=== PATIENT | female | born 1980 | race Hispanic/Latino ===

== ENCOUNTER 2018-03-12 21:48 | Emergency (ER) | payer OTHER ==
[2018-03-12] MEDS ORDERED: HYDROCODONE/APAP 10/325 TAB ONE (23:55)
--- NOTE | 2018-03-13 00:42 | ER ---
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 Transition of care: patient was not received from another setting of care. Onset of symptoms is unknown. Risk Assessment: Do you want to hurt yourself or someone else? Patient reports no desire to harm self or others. Initial Sepsis Screen: Does the patient meet any 2 criteria? No. Patient's initial sepsis screen is negative. Does the patient have a suspected source of infection? No. Patient's initial sepsis screen is negative. Care prior to arrival: None. 22:11 Method Of Arrival: Ambulatory ak1 22:11 Acuity: ANDREW 4 ak1 Triage Assessment: 22:13 General: Appears uncomfortable, Behavior is calm, cooperative. Pain:. 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 - Social history:: Smoking status: Patient uses tobacco products, smokes one-half pack cigarettes per day. - Ebola Screening: : No symptoms or risks identified at this time. Screenin:07 Abuse screen: Denies threats or abuse. Nutritional screening: No deficits noted. tl3 Tuberculosis screening: No symptoms or risk factors identified. Fall Risk None identified. Assessment: 23:07 General: Appears uncomfortable, well groomed, well developed, well nourished, Behavior tl3 is calm, cooperative, appropriate for age. Pain: Complains of pain in left gluteal fold. Neuro: Level of Consciousness is awake, alert, obeys commands, Oriented to person, place, time, situation, Appropriate for age. Cardiovascular: Patient's skin is warm and dry. Respiratory: Airway is patent Respiratory effort is even, unlabored, Respiratory pattern is regular, symmetrical. GI: No deficits noted. No signs and/or symptoms were reported involving the gastrointestinal system. : No deficits noted. No signs and/or symptoms were reported regarding the genitourinary system. EENT: No deficits noted. No signs and/or symptoms were reported regarding the EENT system. Derm: Abscess. 23:09 Reassessment: pt reports that she has had a bump on her Left butt cheek for the last tl3 2.5 months. Just started to get worse with pain and throbbing. 03/13 00:39 Reassessment: Patient appears in no apparent distress at this time. No changes from tl3 previously documented assessment. Patient and/or family updated on plan of care and expected duration. Pain level reassessed. Patient is alert, oriented x 3, equal unlabored respirations, skin warm/dry/pink. Vital Signs: 03/12 22:14 BP 111 / 78; Pulse 96; Resp 16; Temp 100.1(O); Pulse Ox 99% on R/A; Weight 69.4 kg (R); ak1 Height 5 ft. 1 in. (154.94 cm) (R); Pain 8/10; 03/13 00:39 BP 102 / 70; Pulse 64; Resp 18; Pulse Ox 99% ; tl3 03/12 22:14 Body Mass Index 28.91 (69.40 kg, 154.94 cm) ak1 ED Course: 03/12 21:51 Patient arrived in ED. ag3 22:13 Triage completed. ak1 22:13 Arm band placed on Patient placed in waiting room, Patient notified of wait time. ak1 23:05 Karan Rivas NP is PHCP. pm1 23:05 Judd Jaimes MD is Attending Physician. pm1 23:07 Becka Deleon, RN is Primary Nurse. tl3 23:07 Patient has correct armband on for positive identification. Placed in gown. Bed in low tl3 position. Call light in reach. Side rails up X 1. Adult w/ patient. 23:07 No provider procedures requiring assistance completed. tl3 03/13 00:52 Patient did not have IV access during this emergency room visit. tl3 Administered Medications: 03/12 23:44 Drug: [place] 10 mg-325 mg 1 tabs Route: PO; tl3 03/13 00:38 Follow up: Response: No adverse reaction tl3 00:48 Not Given (unavailable): Clindamycin 600 mg IM once pm1 00:51 Drug: Clindamycin 300 mg Route: PO; tl3 00:51 Follow up: Response: Medication administered at discharge. tl3 Outcome: 00:41 Discharge ordered by MD. pm1 00:52 Discharged to home ambulatory. tl3 00:52 Condition: stable 00:52 Discharge instructions given to patient, Instructed on discharge instructions, follow up and referral plans. medication usage, stressed importance of follow up with CORDUROY CUTTING SUPERVISOR JUDSON 00:53 Patient left the ED. tl3 Signatures: Dee Whitmore RN RN ak1 Karan Rivas, CHASE ROTARY ADJUSTER pm1 Becka Deleon RN RN tl3 Zaida Pittman ag3
--- NOTE | 2018-03-13 00:42 | EDPHYS ---
Physician Documentation [facility] Name: Blanca Conn Age: 38 yrs Sex: Female : 1980 Arrival Date: 03/12/2018 Time: 21:51 Bed 27 Private MD: ED Physician Judd Jaimes HPI: 03/13 00:30 This 38 yrs old Female presents to ER via Ambulatory with complaints of Skin pm1 Problem. 00:30 Onset: The symptoms/episode began/occurred 3 month(s) ago. Associated signs and pm1 symptoms: Pertinent negatives: fever. Modifying factors: The patient symptoms are alleviated by nothing, the patient symptoms are aggravated by touching area, sitting. The patient has not experienced similar symptoms in the past. The patient has not recently seen a physician. Patient with swelling to groin area that comes and goes for the past 3 months. . 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 - Social history:: Smoking status: Patient uses tobacco products, smokes one-half pack cigarettes per day. - Ebola Screening: : No symptoms or risks identified at this time. ROS: 03/13 00:30 Constitutional: Negative for fever, chills, and weight loss, Eyes: Negative for injury, pm1 pain, redness, and discharge, ENT: Negative for injury, pain, and discharge, Neck: Negative for injury, pain, and swelling, Cardiovascular: Negative for chest pain, palpitations, and edema, Respiratory: Negative for shortness of breath, cough, wheezing, and pleuritic chest pain, Abdomen/GI: Negative for abdominal pain, nausea, vomiting, diarrhea, and constipation, Back: Negative for injury and pain. MS/Extremity: Negative for injury and deformity, Skin: Negative for injury, rash, and discoloration, Neuro: Negative for headache, weakness, numbness, tingling, and seizure. : Positive for of the right labia majora, swelling . Exam: 00:30 Constitutional: This is a well developed, well nourished patient who is awake, alert, pm1 and in no acute distress. Head/Face: Normocephalic, atraumatic. Eyes: Pupils equal round and reactive to light, extra-ocular motions intact. Lids and lashes normal. Conjunctiva and sclera are non-icteric and not injected. Cornea within normal limits. Periorbital areas with no swelling, redness, or edema. ENT: Nares patent. No nasal discharge, no septal abnormalities noted. Tympanic membranes are normal and external auditory canals are clear. Oropharynx with no redness, swelling, or masses, exudates, or evidence of obstruction, uvula midline. Mucous membranes moist. Neck: Trachea midline, no thyromegaly or masses palpated, and no cervical lymphadenopathy. Supple, full range of motion without nuchal rigidity, or vertebral point tenderness. No Meningismus. Chest/axilla: Normal chest wall appearance and motion. Nontender with no deformity. No lesions are appreciated. Cardiovascular: Regular rate and rhythm with a normal S1 and S2. No gallops, murmurs, or rubs. Normal PMI, no JVD. No pulse deficits. Respiratory: Lungs have equal breath sounds bilaterally, clear to auscultation and percussion. No rales, rhonchi or wheezes noted. No increased work of breathing, no retractions or nasal flaring. Abdomen/GI: Soft, non-tender, with normal bowel sounds. No distension or tympany. No guarding or rebound. No evidence of tenderness throughout. Back: No spinal tenderness. No costovertebral tenderness. Full range of motion. 00:30 Skin: Warm, dry with normal turgor. Normal color with no rashes, no lesions, and no evidence of cellulitis. MS/ Extremity: Pulses equal, no cyanosis. Neurovascular intact. Full, normal range of motion. 00:30 : Pelvic Exam: External exam: Bartholin's cyst present, Becka HAGEN. 00:30 Neuro: Orientation: is normal, Motor: is normal, moves all fours. Vital Signs: 03/12 22:14 BP 111 / 78; Pulse 96; Resp 16; Temp 100.1(O); Pulse Ox 99% on R/A; Weight 69.4 kg (R); ak1 Height 5 ft. 1 in. (154.94 cm) (R); Pain /10; 03/13 00:39 BP 102 / 70; Pulse 64; Resp 18; Pulse Ox 99% ; tl3 03/12 22:14 Body Mass Index 28.91 (69.40 kg, 154.94 cm) ak1 MDM: 03/12 23:09 Patient medically screened. michel 03/13 00:30 Refusal of service: The patient/guardian displays adequate decision making capability pm1 and despite a detailed discussion of alternatives, benefits, risks, and consequences refuses: Patient does not want her abscess drained. Wants it to be drained by her physician. 00:40 Data reviewed: vital signs. Data interpreted: Pulse oximetry: on room air is 99 %. pm1 Interpretation: normal. Counseling: I had a detailed discussion with the patient and/or guardian regarding: the historical points, exam findings, and any diagnostic results supporting the discharge/admit diagnosis, the need for outpatient follow up, an OB/Gyne specialist, to return to the emergency department if symptoms worsen or persist or if there are any questions or concerns that arise at home. Administered Medications: 03/12 23:44 Drug: [place] 10 mg-325 mg 1 tabs Route: PO; tl3 03/13 00:38 Follow up: Response: No adverse reaction tl3 00:48 Not Given (unavailable): Clindamycin 600 mg IM once pm1 00:51 Drug: Clindamycin 300 mg Route: PO; tl3 00:51 Follow up: Response: Medication administered at discharge. tl3 Disposition: 03/13/18 00:41 Discharged to Home. Impression: Abscess of Bartholin's gland. - Condition is Stable. - Discharge Instructions: Bartholin Cyst or Abscess. - Prescriptions for Clindamycin HCl 300 mg Oral Capsule - take 1 capsule by ORAL route every 6 hours for 10 days; 40 capsule. Tylenol- Codeine #3 300-30 mg Oral Tablet - take 2 tablets by ORAL route every 6 hours As needed; 20 tablet. - Medication Reconciliation Form, Thank You Letter, Antibiotic Education, Prescription Opioid Use form. - Follow up: Emergency Department; When: As needed; Reason: Worsening of condition. Follow up: Private Physician; When: 2 - 3 days; Reason: Recheck today's complaints, Continuance of care, Re-evaluation by your physician. - Problem is new. - Symptoms have improved. Addendum: 03/18/2018 11:31 Co-signature as Attending Physician, Judd Jaimes MD I agree with the assessment and c perez plan of care. Signatures: Judd Jaimes MD MD cha Krenek, Amber, RN RN ak1 Karan Rivas, DRIER TENDER DRIER TENDER pm1 Becka Deleon, RN RN tl3 Corrections: (The following items were deleted from the chart) 03/13 00:53 00:41 03/13/2018 00:41 Discharged to Home. Impression: Abscess of Bartholin's gland. tl3 Condition is Stable. Forms are Medication Reconciliation Form, Thank You Letter, Antibiotic Education, Prescription Opioid Use. Follow up: Emergency Department; When: As needed; Reason: Worsening of condition. Follow up: Private Physician; When: 2 - 3 days; Reason: Recheck today's complaints, Continuance of care, Re-evaluation by your physician. Problem is new. Symptoms have improved. pm1
[2018-03-13] MEDS ORDERED: CLINDAMYCIN HCL 150 MG CAP ONE (00:58)
== END 2018-03-13 00:53 | disposition home or self-care (01) ==
LOC: ER 21:48
DX: N75.1 Abscess of Bartholin's gland (principal); F17.210 Nicotine dependence, cigarettes, uncomplicated
CPT/HCPCS: 99283